=== PATIENT | male | born 1990 | race Caucasian/White ===

== ENCOUNTER 2018-10-30 19:35 | Emergency (ER) | payer OTHER ==
[~2018-10-30] VITALS: Ht 177.8 cm; Wt 89.8 kg
== END 2018-10-31 00:27 | disposition home or self-care (01) ==
LOC: ER 19:35
DX: K52.89 Other specified noninfective gastroenteritis and colitis (principal); R19.7 Diarrhea, unspecified; R10.84 Generalized abdominal pain; E86.0 Dehydration